=== PATIENT | female | born 1990 | race Caucasian/White ===

== ENCOUNTER 2018-03-20 11:22 | Emergency (ER) | payer BC ==
[~2018-03-20] VITALS: Ht 165.1 cm; Wt 105.7 kg
[~2018-03-20 11:22] MED LIST: CRYSELLE 30 MCG1 TAB PO; WELLBUTRIN 100100 MG PO
[2018-03-20 11:25] VITALS: BP 137/80
[2018-03-20 12:05] VITALS: TEMP 97.9
[2018-03-20] MEDS ORDERED: ZOFRAN ODT4 MG PO (12:23)
[2018-03-20 12:58] VITALS: PULSE 91
== END 2018-03-20 12:59 | disposition home or self-care (01) ==
LOC: COL.ER 11:22
DX: L55.0 Sunburn of first degree (principal); F17.210 Nicotine dependence, cigarettes, uncomplicated
CPT/HCPCS: J1885; J2405

== ENCOUNTER 2018-03-21 17:17 | Emergency (ER) | payer BC ==
[~2018-03-21] VITALS: Ht 165.1 cm; Wt 104.5 kg
[~2018-03-21 17:17] MED LIST changes: +ZOFRAN ODT4 MG PO
[2018-03-21 17:21] VITALS: BP 133/77; TEMP 98.4
[2018-03-21 19:11] VITALS: PULSE 73
== END 2018-03-21 19:13 | disposition home or self-care (01) ==
LOC: COL.ER 17:17
DX: L55.0 Sunburn of first degree (principal); F17.210 Nicotine dependence, cigarettes, uncomplicated
CPT/HCPCS: J1885; J2405